=== PATIENT | female | born 1985 | race Caucasian/White ===

== ENCOUNTER 2022-08-21 08:37 | Emergency (ER) | payer OTHER, SELFPAY ==
--- NOTE | ~2022-08-21 | US_ITS ---
EXAMINATION: US OB <=14 wk fetus w TV DATE: 08/21/2022 10:20 INDICATION: Positive test. Right lower quadrant pain. Vaginal bleeding. TECHNIQUE: Real-time transabdominal and transvaginal obstetric ultrasound. FINDINGS: No prior studies for comparison. The uterus measures 10.5 x 6.7 x 7 cm. There is an intrauterine gestational sac which corresponds to a 8 week 3 day gestation. No definitive pole identified. There is an enlarged yolk sac. No subc horionic hemorrhage. No heart motions. Right ovary measures 2.2 x 2.1 x 1.6 cm with a small cor pus luteal cyst. Left ovary measures 2.8 x 0.8 x 2 cm with follicular changes. There is vascular flow in both ovaries. IMPRESSION: 1. Intrauterine gestational sac corresponds to a 8 week 3 day gestation and contains an enlarged yolk sac. No definitive pole identified. No heart motions. Findings suspicious for blighted o vum. Recommend follow-up with serial quantitative beta-hCG levels and ultrasound as clinically warran moreno. Reviewed, dictated and finalized at location A. IMPRESSION: 1. Intrauterine gestational sac corresponds to a 8 week 3 day gestation and con tains an enlarged yolk sac. No definitive pole identified. No heart motions. Findings suspicious for blighted ovum. Recommend follow-up with seria l quantitative beta-hCG levels and ultrasound as clinically warranted.
[2022-08-21 09:07] VITALS: BP 107/74; PULSE 102; RESP 18; TEMP 36.8; O2SAT 99
--- NOTE | 2022-08-21 09:33 | ED.PREGNANCY ---
HPI - General Chief complaint: Vaginal Bleeding Stated complaint: EARLY PREG VAG BLEED Time Seen by Provider: 08/21/22 08:53 Source: patient Mode of arrival: ambulatory Limitations: no limitations History of Present Illness HPI Narrative: Patient is a 37-year-old female who presents to the ED with report of vaginal bleeding. Patient is G4, P2, A1 and currently . She is unsure how far along she is. She states she was previously on a control and did not have a cycle for 7 months. She had a positive home test on July 17. She had blood work drawn around that time and states her beta hcg level was > 10,000. Patient lives in [facility] and is scheduled to follow up with her OBGYN for her first appointment and ultrasound tomorrow. She states this morning she noticed light vaginal spotting while urinating. She states she only noticed the blood while wiping. She did pass 1 small blood clot. She also reported having some discomfort in her right lower abdomen this morning, which prompted her presentation. She has had some nausea throughout the , denies vomiting, denies fevers, urinary symptoms, diarrhea, constipation. Related Data Allergies Allergy/AdvReac Type Severity Reaction Status Date / Time codeine Allergy Unknown Verified 08/21/22 09:55 Review of Systems Review of Systems: CONSTITUTIONAL: Denies fever, chills, or sweats. CARDIOVASCULAR: Denies chest pain. RESPIRATORY: Denies dyspnea. GASTROINTESTINAL: See HPI. GENITOURINARY: See HPI. SKIN: Denies rash or itching. MUSCULOSKELETAL: Denies back pain, joint pain, or myalgia. All systems reviewed & are unremarkable except as noted in HPI and below PMFSH Past Medical History Medical History (Updated 08/21/22 @ 11:02 by Melvi Peace PA-C) History of miscarriage Surgical History Surgical History (Updated 08/21/22 @ 09:39 by Melvi Peace PA-C) No pertinent past surgical history Social History Social History (Updated 08/21/22 @ 09:39 by Melvi Peace PA-C) Smoking status: Never smoker Exam Narrative: GENERAL: Well appearing, well-nourished, non-toxic, in no acute distress. HEAD: Normocephalic, atraumatic. NECK: Supple. No adenopathy, no masses. RESPIRATORY: Airway patent, respirations nonlabored. Clear to auscultation bilaterally, no rales, rhonchi, wheezing. CARDIOVASCULAR: Regular rate and rhythm without murmurs, rubs, or gallops. Peripheral pulses 2+ and equal bilaterally. ABDOMINAL: Soft, tenderness in right mid and lower abdomen, nondistended, no hepatosplenomegaly. Normoactive BS. PELVIC: MUSCULOSKELETAL: Moves all extremities. Strength/ROM intact without gross deformities. SKIN: Warm, dry, normal color. No rashes. NEURO: A&O X3. Speech clear. Cranial nerves II-XII grossly intact. Steady gait. No ataxic movements. PSYCHIATRIC: Appropriate mood and affect. Normal interaction. Course Vital Signs Vital signs: Vital Signs Temperature 98.2 F 08/21/22 09:07 Pulse Rate 102 H 08/21/22 09:07 Respiratory Rate 18 08/21/22 09:07 Blood Pressure 107/74 08/21/22 09:07 Pulse Oximetry 99 08/21/22 09:07 Oxygen Delivery Room Air 08/21/22 09:07 Temperature 98.2 F 08/21/22 09:07 Pulse Rate 102 H 08/21/22 09:07 Respiratory Rate 18 08/21/22 09:07 Blood Pressure 107/74 08/21/22 09:07 Pulse Oximetry 99 08/21/22 09:07 Oxygen Delivery Room Air 08/21/22 09:07 MDM - OB/Uterine Contractions MDM Narrative Medical decision making narrative: Patient is G4, P2, currently , unsure of gestational age, developed vaginal spotting and right lower quadrant abdominal pain this morning. No previous US for current . Patient in no acute distress. OB US obtained today showing findings consistent with blighted ovum. Gestational age of 8 weeks, 3 days, no pole or heart motion detected. Beta hcg ~52662. No records to compare to,
[2022-08-21] MEDS: METOCLOPRAMIDE HCL 10 MG TABLET PO (10:29)
[2022-08-21 11:06] LABS: Basophils Percent Auto 0.3 % (0.2-1.2); Eosinophils Percent Auto 0.3 % (0-4.4); Hematocrit 39.3 % (37.0-47.0); Hemoglobin 12.6 g/dL (12.0-15.0); Immature Granulocyte Absolute 0.01 K/mm3 (0.00-0.031); Immature Granulocyte Percent A 0.1 % (0-0.5); Lymphocytes Absolute Auto 1.75 K/mm3 (0.9-3.2); Lymphocytes Percent Auto 25.7 % (18.3-44.2); Mean Corpuscular HGB Conc 32.1 g/dl (32-36); Mean Corpuscular Hemoglobin 28.3 pg (26-34); Mean Corpuscular Volume 88.3 fl (80-100); Mean Platelet Volume 10.8 fl (7.4-10.4); Monocytes Absolute Auto 0.5 K/mm3 (0.1-0.6); Monocytes Percent Auto 7.3 % (2.6-8.5); Neutrophils Absolute Auto 4.5 K/mm3 (1.3-6.7); Neutrophils Percent Auto 66.3 % (45.5-73.1); Platelet Count Result 210 k/mm3 (150-375); Red Blood Count 4.45 M/mm3 (4.2-5.4); Red Cell Distribution Width 12.9 % (11.5-14.5); White Blood Count 6.8 K/mm3 (4.5-10.0)
[2022-08-21 11:15] LABS: Alanine Aminotransferase 17 U/L (6-35); Albumin Level 4.1 g/dL (3.5-5.1); Alkaline Phosphatase 61 U/L (38-126); Anion Gap 6 mmol/L (8-16); Aspartate Amino Transferase 24 U/L (14-36); Bilirubin,Total 0.6 mg/dL (0.2-1.3); Blood Urea Nitrogen 5 mg/dL (7-17); Calcium 9.2 mg/dL (8.4-10.2); Carbon Dioxide 25 mmol/L (22-30); Chloride 105 mmol/L (98-107); Estimated CRCL calculation 118 ml/min; Estimated Glomerular Filt Rate > 60; Glucose 80 mg/dL (65-110); Potassium 3.8 mmol/L (3.4-5.0); Sodium 136 mmol/L (137-145)
[2022-08-21 11:18] LABS: Appearance Urine Cloudy (Clear); Bacteria Urine None Seen /hpf; Bilirubin Urine Negative (Negative); Blood Urine Negative (Negative); Color Urine Yellow (Yellow); Glucose Urine UA Negative (Negative); Ketones Urine Trace mg/dL (Negative); Leukocyte Esterase Ur Negative LEU/UL (Negative); Nitrate Urine Negative (Negative); Non Pathogenic Casts 0-2; Protein Urine Negative (Negative); RBC Urine 0-2 /hpf (0-2); Specific Grav Ur 1.008 (1.001-1.035); Squamous Epithelial Cell Urine None seen /hpf (Few); Urobilinogen Urine 0.2 mg/dL (<2.0); WBC Urine 0-5 /hpf
[2022-08-21 11:21] LABS: Add Urine Microscopic? YES
== END 2022-08-21 13:10 | disposition home or self-care (01) ==
PROVIDERS: Emergency Provider Physician Assistant
DX: O02.0 Blighted ovum and nonhydatidiform mole (principal)
CPT/HCPCS: 36415; 76801; 76817; 80053; 81001; 84702; 85025; 85461; 86850; 86900; 86901; 99284; A9270